=== PATIENT | female | born 1995 | race African-American/Black ===

== ENCOUNTER 2016-09-17 23:43 | Emergency (ER) | payer BC ==
[2016-09-18] MEDS ORDERED: HYDROcodone/ACETAMINOPHEN 1 EACH TABLET PO ONE (00:15)
[2016-09-18] MEDS ORDERED: HYDROcodone/ACETAMINOPHEN 1 EACH TABLET ONE (00:17)
[2016-09-18 00:47] LABS: Urine Bilirubin Negative (NEGATIVE); Urine Blood Negative /ul (NEGATIVE); Urine Ketone Negative (NEGATIVE); Urine Nitrite Negative (NEGATIVE); Urine Protein Negative (NEGATIVE); Urine Urobilinogen Normal (NORMAL)
[2016-09-18 00:54] LABS: Urine Appearance Clear; Urine Color Yellow
[2016-09-18 00:55] LABS: Urine Bacteria None Seen; Urine RBC None Seen /hpf (0-5); Urine WBC 0-5 /hpf (0-5)
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
[2016-09-18 02:00] VITALS: BP 107/63
== END 2016-09-18 01:38 | disposition home or self-care (01) ==
LOC: ER 23:43
DX: S13.9XXA Sprain of joints and ligaments of unspecified parts of neck, initial encounter (principal); V89.2XXA Person injured in unspecified motor-vehicle accident, traffic, initial encounter